=== PATIENT | female | born 1995 | race African-American/Black ===

== ENCOUNTER 2018-11-13 12:04 | Outpatient (CLI) | payer OTHER ==
[2018-11-13 15:35] VITALS: BP 128/81
--- NOTE | 2018-11-16 17:56 | PROVIDER PROGRESS NOTE ---
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 She has had her care provided by the [facility]. She reports that she has not felt her baby move all day. Baby has previously been very active. No instigating events. No VB/LOF/CTX) Current : Current EDU 04/06/19 Gestation 19 Weeks and 3 Days 2 Para 1 Vital Signs Temperature 98.1 F 11/13/18 12:10 Heart Rate 98 11/13/18 12:10 Respiratory Rate 20 11/13/18 12:10 Blood Pressure 128/81 H 11/13/18 12:10 O2 Saturation 100 11/13/18 12:10 Temperature 98.1 F 11/13/18 12:10 Heart Rate 98 11/13/18 12:10 Respiratory Rate 20 11/13/18 12:10 Blood Pressure 128/81 H 11/13/18 12:10 O2 Saturation 100 11/13/18 12:10 - Procedures OB Procedure Performed: Other Diagnosis/Indication for NST: Other (Bedside us was performed that showed cardiac activity and active movement.) NST Procedure: Difficult to find heart tones. Bedside us performed. Service Date of procedure: 11/13/18 Findings: Active cardiac activity and presence of movement on bedside us. - Plan Plan: Patient reassured by us confirmed viability of fetus. Warning signs were given. Will follow-up with primary OB provider. FINAL DX: Decreased movement Viable intrauterine at 19w1d
== END 2018-11-13 12:35 | disposition home or self-care (01) ==
LOC: WFO 12:04 → FBP 12:06 → WFO 12:35
PROVIDERS: ATTEND Obstetrics & Gynecology
DX: O36.8120 Decreased fetal movements, second trimester, not applicable or unspecified (principal); Z3A.19 19 weeks gestation of pregnancy
CPT/HCPCS: 99211

== ENCOUNTER 2019-03-19 11:11 | Emergency (ER) | payer OTHER ==
--- NOTE | 2019-03-19 13:06 | ED Physician Documentation ---
History of Present Illness - Stated complaint Stated Complaint: SORE THROAT/EYE REDNESS/COUGH/PREG - Chief complaint Chief Complaint: Heent - Additonal information Additional information: This is a 23-year-old female who is G2, P1 at 38 weeks who presents with eye redness, sore throat, cough, nasal congestion, and left ear pain. Symptoms began around 5 days ago. Today she woke up in her eyes were matted shut, [place] an all as well as some non- antibiotic moisturizing drops for her eye. She has had increased ear pain on the left side which is really worse in the last 24 hours. She has felt some tactile fevers but has not measured a temperature. Her cough is been productive of white to yellow sputum. She denies shortness of breath. No abdominal pain, vomiting, or vaginal bleeding. Review of Systems Ears: reports: Ear pain Nose: reports: Rhinorrhea / runny nose Respiratory: reports: Cough. 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 - Present Medications Home Medications: Ambulatory Orders Medication Instructions Recorded Confirmed Amox/Clav 875/125 [Augmentin] 1 each PO Q12H #14 tablet 03/19/19 Polymyxin B/Trimeth Ophth Drop 1 drops EACHEYE Q4H 7 Days #1 03/19/19 [Polytrim Ophth Drops] bottle - Allergies Allergies/Adverse Reactions: Allergies Allergy/AdvReac Type Severity Reaction Status Date / Time No Known Drug Allergies Allergy Verified 03/19/19 11:17 - Social History Does the pt smoke?: No Smoking Status: Never smoker Does the pt drink ETOH?: No Does the pt have substance abuse?: No - Immunizations Immunizations are current?: Yes PD ED PE NORMAL - General General: Alert and oriented X 3, No acute distress - HEENT HEENT: Pharynx benign, Other (Left tympanic membrane is bulging, erythematous, with a purulent effusion. Right tympanic membrane has a serous effusion. External ear canals are normal. Conjunctiva injected bilaterally, worse on the left. Pupils are equal round reactive to light, extraocular movements are intact, visual acuity normal) - Neck Neck: Supple, no meningeal sign - Cardiac Cardiac: Other (Regular rate in 90s on my exam) - Respiratory Respiratory: No respiratory distress, Clear bilaterally - Abdomen Abdomen: Non tender, Other (Gravid) - Neuro Neuro: Alert and oriented X 3, No motor deficit, No sensory deficit, Normal speech Results - Vitals Vitals: Oxygen O2 Source Room air PD MEDICAL DECISION MAKING - ED course Complexity details: considered differential (URI, otitis media, viral syndrome, bacterial conjunctivitis) ED course: Pt is non-toxic, she was tachycardic in triage but this resolved spontaneously by the time of my exam. heart tones normal. She has a otitis media, and her symptoms are concerning for bacterial conjunctivitis as well. I prescribed abx pills and drops, discussed follow up and return precautions, and pt was discharged home in good condition. Departure - Departure Disposition: 01 Home, Self Care Clinical Impression: Otitis media Qualifiers: Otitis media type: suppurative Chronicity: acute Laterality: left Recurrence: not specified as recurrent Spontaneous tympanic membrane rupture: without spontaneous rupture Qualified Code(s): H66.002 - Acute suppurative otitis media without spontaneous rupture of ear drum, left ear Conjunctivitis Qualifiers: Conjunctivitis type: acute Acute conjunctivitis type: bacterial Laterality: left Qualified Code(s): H10.32 - Unspecified acute conjunctivitis, left eye URI (upper respiratory infection) Qualifiers: URI type: unspecified viral URI Qualified Code(s): J06.9 - Acute upper respiratory infection, unspecified Condition: Good Instructions: ED Otitis Media Acute Adult Follow-Up: Your,OB [Other] - Within 3 Days (With any non-improving symptoms) Prescriptions: Amox/Clav 875/125 [Augmentin] 1 each PO Q12H #14 tablet Polymyxin B/Trimeth Ophth Drop [Polytrim Ophth Drops] 1 drops EACHEYE Q4H 7 Days #1 bottle Comments: You appear to have a viral illness, you additionally have a conjunctivitis which may be bacterial, please take the eyedrops as prescribed for this. You also have a left ear infection, please take the augmentin. You may Take Tylenol 650 mg every 6 hours as needed for fever pain, you may also try Benadryl 25 mg every 8 hours as needed for congestion. Please follow-up with your OB and/or your primary care provider as soon as possible. If you are having worsening symptoms such as difficulty breathing, chest pain, or fever despite the Tylenol return to the emergency department. Discharge Date/Time: 03/19/19 14:18
[2019-03-19] MEDS ORDERED: AMOX/CLAV 875 MG/125 MG TABLET PO STA (13:33)
[2019-03-19 13:53] VITALS: BP 115/75
--- NOTE | 2019-03-20 03:22 | PROCEDURE REPORT ---
- HPI Diagnosis/Indication for NST: Other (ER visit for URI sx) Current EDU 04/06/19 Gestation 37 Weeks and 3 Days 2 Para 0 Vital Signs Temperature 98.8 F 03/19/19 11:15 Heart Rate 134 H 03/19/19 11:15 Respiratory Rate 18 03/19/19 11:15 Blood Pressure 116/71 03/19/19 11:15 O2 Saturation 97 03/19/19 11:15 Temperature 98.4 F 03/19/19 13:52 Heart Rate 99 03/19/19 13:52 Respiratory Rate 16 03/19/19 13:52 Blood Pressure 115/75 03/19/19 13:52 O2 Saturation 99 03/19/19 13:52 - NST Procedure NST Procedure Start Date 03/19/19 Start Time 13:48 Stop Time 14:10 Vibroacoustic Stimulation Used No Patient States Movement Yes - Results and Plan Findings/Impression: Category 1 NST [place] neg Plan: Routine care
== END 2019-03-19 14:18 | disposition home or self-care (01) ==
LOC: ED 11:11
DX: O99.89 Other specified diseases and conditions complicating pregnancy, childbirth and the puerperium (principal); H66.002 Acute suppurative otitis media without spontaneous rupture of ear drum, left ear; H10.32 Unspecified acute conjunctivitis, left eye; O99.513 Diseases of the respiratory system complicating pregnancy, third trimester; J06.9 Acute upper respiratory infection, unspecified; Z3A.38 38 weeks gestation of pregnancy
CPT/HCPCS: 99282; 99284; A9270

== ENCOUNTER 2019-03-28 10:20 | Outpatient (CLI) | payer OTHER ==
[2019-03-28 10:57] LABS: BASOPHILS % (AUTO) 0.5 %; EOSINOPHILS # (AUTO) 0.1 10^3/uL (0.0-0.7); EOSINOPHILS % (AUTO) 2.3 %; HGB - HEMOGLOBIN 11.9 g/dL (12.0-16.0); LYMPHOCYTES # (AUTO) 1.3 10^3/uL (1.5-3.5); LYMPHOCYTES % (AUTO) 21.2 %; MEAN CORPUSCULAR HEMOGLOBIN 28.1 pg (27.0-31.0); MEAN CORPUSCULAR HGB CONC 32.9 g/dL (32.0-36.0); MEAN CORPUSCULAR VOLUME 85.4 fL (81.0-99.0); MEAN PLATELET VOLUME 10.3 fL (7.9-10.8); MONOCYTES # (AUTO) 0.5 10^3/uL (0.0-1.0); MONOCYTES % (AUTO) 8.1 %; NEUTROPHILS # (AUTO) 4.2 10^3/uL (1.5-6.6); NEUTROPHILS % (AUTO) 67.3 %; PLT - PLATELET COUNT 250 10^3/uL (130-450); RED BLOOD COUNT 4.24 10^6/uL (4.20-5.40); WHITE BLOOD COUNT 6.2 x10^3/uL (4.8-10.8)
== END 2019-03-28 10:21 | disposition home or self-care (01) ==
LOC: LAB 10:20
PROVIDERS: ATTEND Obstetrics & Gynecology
DX: O34.29 Maternal care due to uterine scar from other previous surgery (principal); Z3A.00 Weeks of gestation of pregnancy not specified; Z01.812 Encounter for preprocedural laboratory examination
CPT/HCPCS: 36415; 85025; 86850; 86900; 86901

== ENCOUNTER 2019-03-30 09:53 | Inpatient (IN) | payer OTHER ==
[2019-03-30] MEDS ORDERED: SODIUM CHLORIDE FLUSH 0.9% 10 ML SYRINGE ONE ×2 (10:44→11:39)
[2019-03-30] MEDS ORDERED: LACTATED RINGERS 1,000 ML IV ONE ×3 (10:44→13:15)
[2019-03-30] MEDS: SODIUM CHLORIDE FLUSH 0.9% 10 ML SYRINGE IVP PRN (11:10)
[2019-03-30] MEDS ORDERED: ceFAZolin 2 GM in SODIUM CHLORIDE 0.9% 100ML 100 ML IV ONE (11:20)
[2019-03-30] MEDS: LACTATED RINGERS 1,000 ML IV SCH (11:25)
--- NOTE | 2019-03-30 11:32 | ANESTHESIA ---
Pre-Anesthesia VS, & Labs - Diagnosis IUP - Procedure C sec. Vital Signs: Temp Pulse Resp BP Pulse Ox 36.4 C L 80 18 94/62 100 03/30/19 10:15 03/30/19 10:15 03/30/19 10:15 03/30/19 10:15 03/30/19 10:15 Height 5 ft 1 in Weight (kg) 60.328 kg Body Mass Index 24.3 - Is Patient ?: Yes - Lab Results Current Lab Results: Laboratory Tests 03/30/19 11:02: POC Whole Bld Glucose 94 Home Medications and Allergies Active Medications Cefazolin Sodium 2 gm/ Sodium (Chloride) 100 mls @ 200 mls/hr IV ONCE ONE Stop: 03/30/19 11:49 Allergies/Adverse Reactions: Allergies Allergy/AdvReac Type Severity Reaction Status Date / Time No Known Drug Allergies Allergy Verified 03/19/19 11:17 Anes History & Medical History - Anesthetic History Anesthesia Complications: reports: No previous complications Family history of Anesthesia Complications: Denies Family history of Malignant Hyperthermia: Denies - Medical History Cardiovascular: reports: None Pulmonary: reports: None, Other (recent history of " cold" upper respiratoru infection and took her last amoxicillin on 03/29/19. Had been having some cough with yellow mucous about two weeks but denies any mucous now) Gastrointestinal: reports: None Urinary: reports: None Neuro: reports: None Musculoskeletal: reports: None Endocrine/Autoimmune: reports: None Blood Disorders: reports: None Skin: reports: None Smoking Status: Never smoker Psychosocial: reports: No issues indicated - Surgical History Gynecologic: section Exam General: Alert, Oriented x3, Cooperative, No acute distress Dental: WNL Mouth Openin Fingerbreadth Neck Mobility: Normal Mallampati classification: II Thyromental Distance: 4-6 cm Respiratory: Lungs clear, Normal breath sounds, No respiratory distress, No accessory muscle use Cardiovascular: Regular rate, Normal S1, Normal S2, No murmurs Abdomen: Normal bowel sounds, Soft, No tenderness, No hepatospenomegaly, No masses Extremities: No clubbing, No cyanosis, No edema, Normal pulses, No tenderness/swelling Neurological: Normal gait, Normal speech, Strength at 5/5 X4 ext, Normal tone, Sensation intact, Cranial nerves 3-12 NL, Reflexes 2+ Mental/Cognitive Status: Alert/Oriented X3, Normal for patient Cognitive Status: Within normal limits Plan Anesthesia Type: Spinal Consent for Procedure(s) Verified and Reviewed: Yes Code Status: Attempt Resuscitation ASA classification: 2-Mild systemic disease Is this case an emergency?: No
--- NOTE | 2019-03-30 11:35 | HISTORY & PHYSICAL EXAMINATION ---
Admit History - Visit Reason Visit Reason: Other (scheduled RLTCD) - : 2 Parity: 1 Premature: 0 Ectopic: 0 : 0 Care: positive: [place] Risk/History: positive: Previous Complications This : positive: None Smoking Status: Never smoker - Mother's Labs Mother's Blood Type: positive: A Mother's RH: positive: Positive GBS: positive: Group B Step Negative Rubella Status: positive: Immune - Other Maternal History Other Maternal History: 1. prior x 1 2. hx of depression, no current treatment Meds/Allgy - Home Medications Home Medications: Ambulatory Orders Medication Instructions Recorded Confirmed Amox/Clav 875/125 [Augmentin] 1 each PO Q12H #14 tablet 03/19/19 Polymyxin B/Trimeth Ophth Drop 1 drops EACHEYE Q4H 7 Days #1 03/19/19 [Polytrim Ophth Drops] bottle - Allergies Allergies/Adverse Reactions: Allergies Allergy/AdvReac Type Severity Reaction Status Date / Time No Known Drug Allergies Allergy Verified 03/19/19 11:17 Review of Systems - Constitutional Constitutional: denies: Fever, Chills - Eyes Eyes: denies: Spots in vision - Cardiovascular Cariovascular: denies: Irregular heart rate - Respiratory Respiratory: denies: Cough, SOB at rest - Gastrointestinal Gastrointestinal: denies: Abdominal pain - Genitourinary Genitourinary: denies: Dysuria - Integumentary Integumentary: denies: Rash - Psychiatric Psychiatric: denies: Depression Physical - Abdominal Exam Vital Signs: Temp Pulse Resp BP Pulse Ox 97.5 F L 80 18 94/62 100 03/30/19 10:15 03/30/19 10:15 03/30/19 10:15 03/30/19 10:15 03/30/19 10:15 Contraction Frequency (min/apart): none Uterine Resting Tone: positive: Soft - Monitoring Heart Rate Baseline: 140 Strip Review: positive: Category I - Presentation Presentation: positive: Vertex - Vaginal Exam Membranes: positive: Membranes intact - Speculum Exam Speculum Exam Performed: positive: No Plan for Labor - Plan For Labor I expect patient to be DC'd or transferred within 96 hours.: Yes Plan for Labor: 23 yo at 39+0 wga presents for scheduled RLTCD and excision of hypertrophic scar. GBS negative. Maternal hx of depression, no treatment in , curren tly doing well. BMI 25. NKDA. Reactive and reassuring NST. EFW 7#. No labor complaints. -Admit to L&D -Consent signed/on chart -Anesthesia consult; plan spinal anesthesia -PPH risk medium for prior c/s x 1; type and screen, prophylactic pitocin -plans ocps for contraception -Anticipate routine postoperative stay, dispo in 48 hours
[2019-03-30] MEDS ORDERED: OXYTOCIN/DEXTROSE 5 % 30 UNIT/500 ML BAG IV ONE (11:38)
[2019-03-30] MEDS ORDERED: CITRIC ACID/SODIUM CITRATE 15 ML UDC PO ONE ×3 (11:42→16:49)
[2019-03-30] MEDS ORDERED: ONDANSETRON 4 MG/2 ML VIAL IVP PRN (13:12)
[2019-03-30] MEDS ORDERED: diphenhydrAMINE 25 MG CAPSULE PO PRN (13:12)
--- NOTE | 2019-03-30 13:20 | OPERATIVE REPORT ---
Operative Report - General Admit Date: 03/30/19 Procedure Date: 03/30/19 Planned Procedure: 1. repeat low transverse delivery 2. scar excision Pre-Op Diagnosis: uterus at 39+0 wga, prior uterine scar, hypertrophic scar Procedure Performed: repeat low transverse delivery, excision of hypertrophic scar Post Op Diagnosis: same as above, pelvic adhesive disease - Procedure Note Primary Surgeon: Chema Holguin Secondary Surgeon: Rose Petit Anesthesia Technique: Spinal Pathology: none IV Fluids (mL): 1,000 Estimated Blood Loss (mL): 750 Urine Output (mL): 100 Indications: prior uterine scar Findings: Moderate adhesive disease, thick band attaching anterior uterus to anterior abdominal wall. Forceps assisted delivery of viable male infant. 9 and 9. Good uterine tone. Uterus repaired in two layers. Hypertrophic skin scar excised. No complications. Complications: none - Other Other Information/Narrative: After informed consent was assured, pt was taken to the OR with IV fluids running. Spinal anesthesia was achieved. Doptones immediately after spinal were 140. The patient received Ancef 2 gms, and a hannon catheter was placed draining clear yellow urine. She was prepped and draped in a sterile fashion. A surgical timeout was performed. A skin incision was made through the existing scar and carried sharply to the fascia. Rectus sheath fascia was scored on each side and the incisions extended laterally with scissors. The fascia was then dissected off the rectus muscles cephalad and caudad with blunt and sharp dissection. The rectus muscles were in the midline and the peritoneum was elevated and entered sharply. This incision was extended with cautery and blunt dissection, exposing the lower uterine segment. A thick band of adhesive scar tissue was noted between the anterior uterus cephalad of the lower uterine segment, covering most of the left side of the uterus and crossing the midline, limiting uterine mobility. A bladder flap was created with sharp dissection. A low transverse incision was made on the uterus and the sac was incised with return of clear fluid on amniotomy. This incision was bluntly extended in a cephalad-caudad fashion. The 's head was grasped and brought to the incision but difficulty noted delivering with usual fundal pressure. Raymond forceps were placed and articulated easily; checks confirmed the sagittal suture was midline between the blades. With gentle traction and simultaneous fundal pressure, the head was delivered and the forceps were disarticulated. The shoulder was delivered and the body followed controlled. Good cry and tone on the field. Cord clamping was delayed for 30 seconds and the cord was then clamped x 2 and cut; the was passed off the field. See record for further details. The uterus was left in-situ due to the significant adhesive disease, and the hysterotomy was repaired with running locked suture of 0 chromic. Ovaries and tubes were unable to be visualized. An embricating layer was placed with 0 vicryl. Some serosal bleeding at the right corner was reapproximated with 4-0 vicryl. Good hemostasis achieved. The fascia was closed with a running suture of 0 PDS. The hypertrophic portion of the pfannenstiel skin scar was sharply excised. Several interrupted sutures of 2-0 vicryl were placed in the deep dermis to reduce tension on the skin. The skin was reapproximated with a subcuticular suture of 4-0 monocryl. Mastisol and steristrips were placed over the incision, followed by a pressure dressing. Sponge and instrument counts were correct. No complications were appreciated. The patient returned to Labor and Delivery in a stable condition with her infant.
[2019-03-30] MEDS ORDERED: AMOX PO SCH (13:30)
[2019-03-30] MEDS ORDERED: CLAV PO SCH (13:30)
--- NOTE | 2019-03-30 13:35 | DELIVERY NOTE ---
Delivery Note - Infant Delivery Method Infant Delivery Method: positive: Repeat - Presentation Presentation: positive: Vertex, UNIQUE - right occiput anterior - Nuchal Cord Nuchal Cord: positive: None - Anesthetic Anesthetic Type: - Amniotic Fluid Description Amniotic Fluid Description: positive: Clear - Delivery Outcome Delivery Outcome: positive: Livebirth - : positive: Stimulated, Warmed sex: positive: Male - Placenta Placenta: positive: Expressed - Estimated Blood Loss Estimated Blood Loss (in cc): 750 - Post Delivery Events Post Delivery Events: positive: No post delivery events - Delivery Comments (Free Text/Narrative) Delivery Comments (Free Text/Narrative): Uncomplicated RLTCD of viable male infant at 39+0 wga. Forceps assist at delivery, 9 and 9. Double layer uterine closure, moderate intra-abdominal adhesive disease. See operative report for full details.
[2019-03-30] MEDS: ACETAMINOPHEN 500 MG TABLET PO SCH ×2 (15:40→22:27)
[2019-03-30] MEDS: SODIUM CHLORIDE FLUSH 0.9% 10 ML SYRINGE IVP SCH ×2 (16:55→19:57)
[2019-03-30] MEDS: SIMETHICONE CHEW 80 MG TABLET PO SCH ×2 (18:12→22:27)
[2019-03-30] MEDS: KETOROLAC 30 MG/ML VIAL IVP SCH (19:57)
[2019-03-30] MEDS: DOCUSATE SODIUM 100 MG CAPSULE PO SCH (22:27)
[2019-03-31] MEDS: KETOROLAC 30 MG/ML VIAL IVP SCH ×3 (01:54→16:33)
[2019-03-31] MEDS: SODIUM CHLORIDE FLUSH 0.9% 10 ML SYRINGE IVP PRN ×2 (01:54→08:40)
[2019-03-31] MEDS: SODIUM CHLORIDE FLUSH 0.9% 10 ML SYRINGE IVP SCH ×2 (01:54→16:34)
[2019-03-31 04:57] LABS: BASOPHILS % (AUTO) 0.2 %; EOSINOPHILS # (AUTO) 0.1 10^3/uL (0.0-0.7); EOSINOPHILS % (AUTO) 1.7 %; HGB - HEMOGLOBIN 9.7 g/dL (12.0-16.0); LYMPHOCYTES # (AUTO) 1.7 10^3/uL (1.5-3.5); LYMPHOCYTES % (AUTO) 20.4 %; MEAN CORPUSCULAR HGB CONC 32.3 g/dL (32.0-36.0); MEAN CORPUSCULAR VOLUME 86.5 fL (81.0-99.0); MONOCYTES # (AUTO) 0.7 10^3/uL (0.0-1.0); MONOCYTES % (AUTO) 8.9 %; NEUTROPHILS # (AUTO) 5.5 10^3/uL (1.5-6.6); NEUTROPHILS % (AUTO) 68.6 %; PLT - PLATELET COUNT 209 10^3/uL (130-450); RED BLOOD COUNT 3.47 10^6/uL (4.20-5.40); RED CELL DISTRIBUTION WIDTH 13.1 % (12.0-15.0); WHITE BLOOD COUNT 8.1 x10^3/uL (4.8-10.8)
--- NOTE | 2019-03-31 06:55 | PROVIDER PROGRESS NOTE ---
Subjective - Prog Note Date Prog Note Date: 03/31/19 Prog Note Time: 06:55 - Subjective Pt reports feeling: Improved Subjective: Pt reports incisional soreness but pain well controlled by medication. Not yet ambulating. Voiding to hannon. No BM yet. Tolerating regular diet without n/v. Lochia is light. Mood is good. without difficulty. Objective - Vital Signs/Intake & Output Vital Signs: Vital Signs x48h Temp Pulse Resp BP Pulse Ox 03/31/19 05:00 98.4 F 76 16 102/61 98 03/31/19 00:10 98.8 F 74 16 103/63 98 Intake & Output: Intake & Output 03/28/19 03/29/19 03/30/19 03/31/19 23:59 23:59 23:59 23:59 Intake Total 1000 Output Total 925 490 Balance 75 -490 - Objective General Appearance: positive: No acute distress Abdomen: positive: Other (soft, nondistended, appropriate nusrat-incisional tenderness with no rebound or guarding. Dressing in place with slight strikethrough on left aspect, no evidence of active bleeding.) Skin: positive: Color nml, No rash Extremities: positive: Non-tender Neurologic/Psychiatric: positive: Oriented x3 - Lab Results Fish Bones: 03/31/19 04:50 Other Labs: Lab Results x24hrs 03/31/19 03/30/19 Range/Units 04:50 11:02 WBC 8.1 (4.8-10.8) x10^3/uL RBC 3.47 L (4.20-5.40) 10^6/uL Hgb 9.7 L (12.0-16.0) g/dL Hct 30.0 L (37.0-47.0) % MCV 86.5 (81.0-99.0) fL MCH 28.0 (27.0-31.0) pg MCHC 32.3 (32.0-36.0) g/dL RDW 13.1 (12.0-15.0) % Plt Count 209 (130-450) 10^3/uL MPV 10.0 (7.9-10.8) fL Neut # (Auto) 5.5 (1.5-6.6) 10^3/uL Lymph # (Auto) 1.7 (1.5-3.5) 10^3/uL [place] # (Auto) 0.7 (0.0-1.0) 10^3/uL Eos # (Auto) 0.1 (0.0-0.7) 10^3/uL Baso # (Auto) 0.0 (0.0-0.1) 10^3/uL Absolute Nucleated RBC 0.00 x10^3/uL Nucleated RBC % 0.0 /100WBC POC Whole Bld Glucose 94 (70 - 100) mg/dL Assessment/Plan - Problem List (1) state Impression: 23 yo POD#1 s/p RLTCD. Rh positive, Rubella Immune. Uncomplicated and delivery. Recovering well. VS wnl, UOP 1.6 ml/kg/h past 5h. Exam benign. Hct 36-->30. -Routine postoperative care -Ambulate today, then remove hannon with 4h DTV -Transition toradol to ibuprofen after 4th dose -Start iron/vitamin C for mild postoperative anemia, c/w EBL -Dispo: home tomorrow
[2019-03-31] MEDS: DOCUSATE SODIUM 100 MG CAPSULE PO SCH ×2 (08:39→20:30)
[2019-03-31] MEDS: ASCORBIC ACID CHEW 500 MG TABLET PO SCH (08:39)
[2019-03-31] MEDS: ACETAMINOPHEN 500 MG TABLET PO SCH ×2 (08:39→16:18)
[2019-03-31] MEDS: FERROUS SULFATE 325 MG TABLET PO SCH (08:40)
[2019-03-31] MEDS: SIMETHICONE CHEW 80 MG TABLET PO SCH ×3 (08:40→20:30)
[2019-03-31] MEDS: POLYMYXIN B EACHEYE SCH ×4 (09:09→16:34)
[2019-03-31] MEDS: TRIMETHOPRIM EACHEYE SCH ×4 (09:09→16:34)
[2019-03-31] MEDS ORDERED: KETOROLAC 30 MG/ML VIAL IVP ONE (14:43)
[2019-03-31] MEDS: IBUPROFEN 800 MG TABLET PO SCH (16:13)
[2019-03-31] MEDS: LACTATED RINGERS 1,000 ML IV SCH ×2 (16:34→16:35)
[2019-03-31] MEDS: oxyCODONE 5 MG TABLET PO PRN (20:18)
[2019-04-01] MEDS: oxyCODONE 5 MG TABLET PO PRN ×3 (00:41→15:08)
[2019-04-01] MEDS: IBUPROFEN 800 MG TABLET PO SCH ×2 (00:43→09:08)
[2019-04-01] MEDS: ACETAMINOPHEN 500 MG TABLET PO SCH ×2 (00:43→09:07)
[2019-04-01 07:33] VITALS: BP 100/66
--- NOTE | 2019-04-01 09:03 | PROVIDER PROGRESS NOTE ---
Subjective - Prog Note Date Prog Note Date: 04/01/19 Prog Note Time: 09:01 - Subjective Pt reports feeling: Improved Subjective: Pt doing well with no acute complaints. Reports pain is overall well controlled, mild-moderate soreness. Did require roxicodone x 1 this AM, but otherwise has only needed motrin and tylenol. Denies n/v, tolerating regular diet. Had some difficulty voiding last night x 1, straight cath x 1 for 350 mL 4 hours after last void, but has voided multiple times since with no difficulty, feels she is emptying bladder, no dysuria. Passing flatus, no BM yet. Lochia is light. without difficulty. Bonding well with son. Objective - Vital Signs/Intake & Output Vital Signs: Vital Signs x48h Temp Pulse Resp BP Pulse Ox 04/01/19 07:33 97.5 F L 82 16 100/66 97 04/01/19 04:09 97.5 F L 89 16 95/53 L 100 Intake & Output: Intake & Output 03/29/19 03/30/19 03/31/19 04/01/19 23:59 23:59 23:59 23:59 Intake Total 1000 Output Total 925 2190 300 Balance 75 -2190 -300 - Objective General Appearance: positive: No acute distress Abdomen: positive: Other (soft, nontender, nondistended. Dressing removed. Incision c/d/i with steristrips in place.) Extremities: positive: Non-tender Neurologic/Psychiatric: positive: Oriented x3 - Lab Results Fish Bones: 03/31/19 04:50 Assessment/Plan - Problem List (1) state Impression: 23 yo POD#2 s/p RLTCD. Rh positive, Rubella Immune. Uncomplicated and delivery. Recovering well. VS wnl, Exam benign. Hct 36-->30. -Routine postoperative care -Dispo: home today
[2019-04-01] MEDS: DOCUSATE SODIUM 100 MG CAPSULE PO SCH (09:07)
[2019-04-01] MEDS: FERROUS SULFATE 325 MG TABLET PO SCH (09:08)
[2019-04-01] MEDS: SIMETHICONE CHEW 80 MG TABLET PO SCH (09:08)
[2019-04-01] MEDS: ASCORBIC ACID CHEW 500 MG TABLET PO SCH (09:08)
--- NOTE | 2019-04-01 09:08 | DISCHARGE SUMMARY ---
"Discharge Summary Admit Date: 03/30/19 Discharge Date: 04/01/19 Discharging Provider: Chema Holguin Code Status: Attempt Resuscitation Condition at Discharge: Good Discharge Disposition: 01 Home, Self Care Discharge Facility Name: [facility] - DIAGNOSES Admission Diagnoses: 1. uterus at 39+0 wga, prior uterine scar Discharge Diagnoses with Status of Each Condition: 1. delivered 2. postoperative anemia, treated - HPI History of Present Illness: 23 yo woman admitted for planned RLTCD at 39+0 wga. - CONSULTS | PROCEDURES Consultations: anesthesia Procedures: 1. external monitoring 2. spinal anesthesia 3. RLTCD - HOSPITAL COURSE Hospital Course: Underwent uncomplicated RLTCD. She remained afebrile throughout her hospital course. On POD#1 her hannon catheter was removed and she was able to void spontaneously. On POD#2 she was ambulating, voiding, tolerating regular diet, pain was well controlled and she was discharged home in good condition. - ALLERGIES Allergies/Adverse Reactions: Allergies Allergy/AdvReac Type Severity Reaction Status Date / Time No Known Drug Allergies Allergy Verified 03/19/19 11:17 - MEDICATIONS Home Medications: Ambulatory Orders Medication Instructions Recorded Confirmed Amox/Clav 875/125 [Augmentin] 1 each PO Q12H #14 tablet 03/19/19 Polymyxin B/Trimeth Ophth Drop 1 drops EACHEYE Q4H 7 Days #1 03/19/19 [Polytrim Ophth Drops] bottle Home Medications Other | Comments: 1. Motrin 800 mg take 1 tab by mouth every 8 hours 2. Tylenol 325 mg take 3 tabs by mouth every 6 hours 3. Roxicodone 5 mg take 1 tab by mouth every 6 hours as needed for pain not relieved by other medications 4. Surfak 240 mg take 1 cap by mouth twice daily 5. Ferrous sulfate 325 mg take 1 tab by mouth daily 6. Ascorbic acid 500 mg take 1 tab by mouth daily - PHYSICAL EXAM AT DISCHARGE General Appearance: positive: No acute distress (see progress note for full exam) - LABS Result Diagrams: 03/31/19 04:50 - QUALITY (Female Hip Fx Only) Was patient sent home on osteoporosis medication?: No - FOLLOW UP Follow Up: Follow up as scheduled with Dr. Holguin at [facility] - TIME SPENT Time Spent in Discharge (Minutes): 30"
== END 2019-04-01 16:16 | disposition home or self-care (01) | DRG 788 ==
LOC: OBS 09:53
PROVIDERS: ADMIT Obstetrics & Gynecology; ATTEND Obstetrics & Gynecology
PROC: 10D00Z1 Extraction of Products of Conception, Low, Open Approach (ICD-10-PCS; principal; 2019-03-30 12:00)
DX: O34.211 Maternal care for low transverse scar from previous cesarean delivery (principal); N85.8 Other specified noninflammatory disorders of uterus; O99.72 Diseases of the skin and subcutaneous tissue complicating childbirth; L91.0 Hypertrophic scar; Z3A.39 39 weeks gestation of pregnancy; Z37.0 Single live birth; O90.81 Anemia of the puerperium; O99.89 Other specified diseases and conditions complicating pregnancy, childbirth and the puerperium; N99.4 Postprocedural pelvic peritoneal adhesions; R39.198 Other difficulties with micturition; Z86.59 Personal history of other mental and behavioral disorders
CPT/HCPCS: 36415; 85025; 86850; 86900; 86901